=== PATIENT | female | born 1975 | race Caucasian/White ===

== ENCOUNTER 2023-01-08 12:05 | Inpatient (IN) | payer MEDICARE, MEDICAID, SELFPAY ==
[2023-01-08 12:15] VITALS: BMI 41.5
[2023-01-08 12:43] LABS: Basophils # 0.1 10^3/uL (0.0-0.1); Basophils % 0.5 %; Eosinophils # 0.2 10^3/uL (0.0-0.8); Eosinophils % 1.8 %; Hematocrit 43.3 % (37.0-47.0); Lymphocytes # 2.9 10^3/uL (0.8-4.8); Lymphocytes % 27.1 %; Mean Corpuscular HGB Conc 32.3 g/dL (30.0-36.0); Mean Corpuscular Hemoglobin 28.6 pg (28.0-34.0); Mean Corpuscular Volume 88.4 fl (81-99); Mean Platelet Volume 9.4 fL (7.4-10.4); Monocytes # 0.8 10^3/uL (0.2-0.9); Monocytes % 7.2 %; Neutrophils # 6.81 10^3/uL (1.8-7.7); Neutrophils % 62.9 %; Nucleated Red Blood Cells % 0 %; Platelet Count 354 10^3/cmm (130-400); Red Cell Distribution Width 12.9 % (12.1-15.1); White Blood Count 10.8 10^3/uL (4.0-10.0)
[2023-01-08 12:59] LABS: Alanine Aminotransferase 17 U/L (0-33); Albumin Level 3.9 g/dL (3.5-5.2); Alkaline Phosphatase 119 U/L (35-105); Anion Gap 13.6 (5-19); Aspartate Amino Transferase 19 U/L (0-32); Blood Urea Nitrogen 8 mg/dL (6-20); Calcium 9.4 mg/dL (8.5-10.5); Carbon Dioxide 28 mmol/L (22-29); Chloride 97 mmol/L (98-107); Globulin 3.5 g/dL (1.3-4.6); Glomerular Filtration Rate 76.2 mL/min (90-130); Glucose 87 mg/dL (65-115); Osmolality Calculated 278 mOsm/kg (285-295); Potassium 3.6 mmol/L (3.5-5.1); Sodium 135 mmol/L (136-145); Total Bilirubin 0.3 mg/dL (0.15-1.2); Total Protein 7.4 g/dL (6.6-8.7)
[2023-01-08 13:00] LABS: Acetaminophen < 5.0 ug/mL (10-30); Alcohol Level < 10 mg/dL (0-10); Salicylate < 0.3 mg/dL (3-10)
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
--- NOTE | 2023-01-08 13:28 | ECG_ITS ---
[facility] Test Date: 2023-01-08 Pat Name: Samantha Weber Department: Room: Gender: Female Disease Intervention Specialist: : [id number] Requested By: Idalmis Madison Order Number: [id number] Vences MD: Paula Almodovar M.D. Measurements Intervals [place] Rate: 79 P: 66 MA: 155 QRS: 70 QRSD: 110 T: 49 QT: 390 QTc: 449 Interpretive Statements SINUS RHYTHM WITH SINUS ARRHYTHMIA No previous ECG available for comparison Electronically Signed On 01-08-2023 17:18:43 CDT by Paula Almodovar M.D. [id number]
[2023-01-08 13:54] LABS: Amphetamines Screen Urine Negative (Negative); Barbiturates Screen Urine Negative (Negative); Benzodiazepines Screen Urine Negative (Negative); Cocaine Screen Urine Negative (Negative); Opiate Screen Urine Negative (Negative); PCP Screen Urine Negative (Negative); THC Screen Urine Negative (Negative)
[2023-01-08 14:15] LABS: Influenza A by IFA negative (Negative); Influenza B by IFA negative (Negative)
[2023-01-08 14:17] LABS: SARS Covid-2 Antigen negative (Negative)
[2023-01-08 14:19] LABS: Thyroid Stimulating Hormone 2.85 uIU/mL (0.27-4.20)
[2023-01-08 14:52] LABS: Urine Appearance Clear (CLEAR); Urine Color Yellow (Yellow); pH Urine 9 (5-7)
[2023-01-08 14:53] LABS: Add Urine Culture? No; Add Urine Microscopic? YES; Bilirubin Urine Neg (Negative); Blood Urine 3+ (Negative); Glucose Urine UA Norm (Normal); Ketones Urine Negative (Negative); Leukocyte Esterase Urine Negative (Negative); Nitrate Urine Negative (Negative); Protein Urine Neg (Negative); Squamous Epithelial Cell Urine 0-4 /hpf (0-5); Sulfosalicylic Acid Urine Negative (Negative); Urobilinogen Urine Norm (Negative); WBC Urine 0-4 /hpf (0-5)
[2023-01-08] MEDS: LORazepam 2 mg/mL INJ 1 mL IM (15:54)
[2023-01-08 16:00] VITALS: O2SAT 98
[2023-01-08 16:06] VITALS: BP 115/71; PULSE 82; RESP 16; O2SAT 98
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
--- NOTE | 2023-01-08 20:15 | PC.NURSE ---
Pt refused vital signs. Pt stated Am I getting out of here?
--- NOTE | 2023-01-08 21:37 | PC.NURSE ---
Pt came out of her room screaming that it was too hot and she couldn't breathe. Pt is also c/o not being able to keep her door shut. Rules regarding the unit explained to pt. Ice water and cool washcloths provided. Pt returned to room. Pt not in any respiratory distress. Now is calm, will con't to monitor.
--- NOTE | 2023-01-09 02:35 | PC.NURSE ---
Pt up at nurses station again belligerent regarding room temperature. Pt states I'm uncomfortable, and I don't understand why I'm in this place . Discussed w/pt that she will speak to the physician when he arrives this morning. Pt asked can I masturbate in my room what are you going to watch me masturbate I can't just lie here, I need my tablet . Rules of the unit explained to the pt, however she remains belligerent. Pt also c/o back pain, however refused PRN medication. Offered another pillow to which pt accepted. Pt also given another cup of ice per her request, then she dumped it all over her body. One on one care and redirection, minimally effective. Pt has returned to her room for the time being.
--- NOTE | 2023-01-09 05:23 | PC.NURSE ---
called pharmacy regarding pt's medications strattera and triam-hctz combo. The only dose of strattera carried by the facility is 40mg and the pts ordered dose from SNF is 10mg, and the only part of diazide available is the HCTZ. Will refer to physician for review.
[2023-01-09] MEDS: calcium carb-vit d 600mg/400unit 1 Tablet 1 EACH PO (06:23)
[2023-01-09] MEDS: allopurinol 100 mg Tablet 300 MG PO (06:23)
[2023-01-09] MEDS: fluoxetine 10 mg Capsule PO (06:24)
[2023-01-09] MEDS: folic acid 1 mg Tablet 2 MG PO (06:24)
[2023-01-09] MEDS: buPROPion XL (24 HR) 300 mg Tablet PO (06:24)
--- NOTE | 2023-01-09 06:40 | PC.NURSE ---
Pt refused vital signs. Pt stated I don't want to be touched!
[2023-01-09] MEDS: diphenhydrAMINE 50 mg/mL SDV 1mL IM (07:05)
[2023-01-09] MEDS: LORazepam 2 mg/mL INJ 1 mL IM (07:05)
--- NOTE | 2023-01-09 07:05 | PC.NURSE ---
Administered pts am meds, pt remains agitated and aggressive with staff. Discussed medications w/pt, and she finally took medications. Pt then came up to the desk and attempted to make a phone call before 7. It was explained that the phones get turned on at seven, pt became aggressive and slamming the phone and then began pulling and hitting at the glass surrounding the nurses station. Security notified and household appliance repairer. Called physician for medications b/c pt states allergic to haldol. Geodon 20mg x 1 dose now. Medication pulled, however pt refused injection giving a multitude of reasons not to take medication and stated she wanted ativan instead. supervisor dry paste at side, Benadryl and ativan administered per orders. Pt urinated in hallway, stating she had a weak bladder and she did it because security wouldn't let her go to the bathroom. [employer] arrived at this time, and pt states that those nurse, retail shift leader are bitches . Injections administered by Alexus QUINTANA. Pt remains severely agitated, however has returned to her room at this time. Did state I just want to go back home, I'm treated better there . Pt now in room at this time, wall and floor tiler notified.
[2023-01-09] MEDS: pantoprazole DR 40 mg Tablet PO (09:28)
[2023-01-09] MEDS: gabapentin 400 mg Capsule PO ×2 (09:28→17:23)
--- NOTE | 2023-01-09 10:30 | W.PM.NPUH&PS ---
Providers/Chief Complaint Admitting Physician: Berlin Neville MD Chief Complaint: SI, HI HPI NPU History of Present Illness Samantha Weber is a 47 year old female who had been residing at the [facility] in [facility] who presented here with staff members who had been concerned about the patient's aggression and manic behaviors. . The patient was admitted to the neuropsychiatric unit for further evaluation and treatment. According to staff, patient had made several statements stating that she was going to kill herself. Patient reports that she has been under guardianship since the age of [age] years old. She was unwilling and unable to provide information regarding her diagnosis. She had stated that she has had problems with her mood and auditory hallucinations and states that she has been taking the Abilify intramuscularly on a monthly basis. However, she had reported that 2 weeks ago her psychiatrist had taken her off of Geodon and had placed her on Latuda. Patient had stated that she had refused to take Latuda and reports that it had caused her problems over there. Staff also had acknowledged her refusal to take her medications. She reports significant feelings of depression in the past but states that she has not been depressed recently. She had minimized any history of jodee although she had reported having problems with hearing voices in the past. She reports a past history of ADHD with difficulties with concentration and attention and states that the Strattera she had been prescribed was giving her headaches. She had also an indicated a history of significant binge eating in her home environment and states that she feels that the binge eating is out of control. She had requested Vyvanse to help with managing her chronic binge eating. She had reported no significant history of drug or alcohol use. She had reported that she had wanted her medications crushed here to show staff that she was taking the medications. The patient denies any homicidal or suicidal ideation. Inpatient psychiatric history: The patient alludes to having been hospitalized numerous times in the past but reports no recent psychiatric hospitalizations. Outpatient psychiatric history: Patient reports that she is followed by Dr. Delcid who she sees through virtual visits while at the assisted facility. Patient reports that she had been receiving mental health services on an outpatient basis since adolescence. She had reported a past history of bulimia, bipolar disorder and schizophrenia. She has been in residential living and nursing facilities for mental health related issues for several years. Current medications: Folic acid, Prozac 10 mg, Wellbutrin 300 mg daily, allopurinol 300 mg, Strattera 10 mg, gabapentin 400 mg 3 times a day, pantoprazole 40 mg daily, MiraLAX 17 g daily, triamterene hydrochlorothiazide 1 capsule daily, Allergies: Per guardian Keflex, Depakote, trazodone Surgeries: None reported Medical history: History of hypertension, history of gout? Drug and alcohol history: None reported Social history: Patient was born outside of [place]. She states that she lives with her biological family. She had stated having problems with learning as a child. She had reported living in a variety of homes during her childhood and adolescence. She reported no legal problems. She states that she had unmanageable behavior issues and required full oil well logging engineer guardianship at the age of 17. She reports not having graduated from high school. She states that she has not worked in several years and is currently on disability. She is currently residing in a assisted facility in [facility]. She reports having few friends. She had not endorsed any history of sexual physical or emotional abuse. ? Meds NPU Home Medications Medication Instructions Recorded Confirmed Last Taken Type acetaminophen 500 mg tablet 500 mg PO Q4H PRN Fever 01/08/23 01/08/23 Unknown History allopurinol 300 mg tablet 300 mg PO QAM 01/08/23 01/08/23 Unknown History aluminum-mag hydroxide-simethicone 30 ml PO Q6H PRN Stomach Upset 01/08/23 01/08/23 Unknown History 200 mg-200 mg-20 mg/5 mL oral susp aripiprazole 400 mg suspension, 400 mg IM Q30D 01/08/23 01/08/23 Unknown History extended rel.intramuscular syringe ([place]) atomoxetine 10 mg capsule 10 mg PO QAM 01/08/23 01/08/23 Unknown History (Strattera) oyhtjghdmk-beqghrg-crnbvyplmpndc 1 kimber mucous membrane Q4H PRN Cough 01/08/23 01/08/23 Unknown History 10 mg-2 mg lozenges bupropion HCl 300 mg 24 hr tablet, 300 mg PO QAM 01/08/23 01/08/23 Unknown History extended release (Wellbutrin XL) calcium carbonate 600 mg-vitamin 2 tab PO QAM 01/08/23 01/08/23 Unknown History D3 5 mcg (200 unit) tablet fluoxetine 10 mg capsule 10 mg PO QAM 01/08/23 01/08/23 Unknown History folic acid 1 mg tablet 2 mg PO QAM 01/08/23 01/08/23 Unknown History gabapentin 400 mg capsule 400 mg PO TID 01/08/23 01/08/23 Unknown History hydroxyzine pamoate 50 mg capsule 50 mg PO Q6H PRN Anxiety 01/08/23 01/08/23 Unknown History (Vistaril) ibuprofen 800 mg tablet 800 mg PO Q4H PRN Pain 01/08/23 01/08/23 Unknown History loperamide 2 mg capsule See Rx Instructions .Route .COMPLEX 01/08/23 01/08/23 Unknown History lurasidone 60 mg tablet (Latuda) 60 mg PO QPM 01/08/23 01/08/23 Unknown History magnesium hydroxide 400 mg/5 mL 30 ml PO Q12H PRN Constipation 01/08/23 01/08/23 Unknown History oral suspension (Milk of Magnesia) melatonin 5 mg tablet 5 mg PO BEDTIME PRN Insomnia 01/08/23 01/08/23 Unknown History ondansetron 4 mg disintegrating 4 mg PO Q8H PRN Nausea 01/08/23 01/08/23 Unknown History tablet pantoprazole 40 mg tablet,delayed 40 mg PO DAILY 01/08/23 01/08/23 Unknown History release (Protonix) polyethylene glycol 3350 17 gram 17 g PO DAILY 01/08/23 01/08/23 Unknown History oral powder packet (Miralax) simethicone 80 mg chewable tablet 80 mg PO Q6H PRN bloating 01/08/23 01/08/23 Unknown History triamterene 37.5 1 cap PO QAM 01/08/23 01/08/23 Unknown History mg-hydrochlorothiazide 25 mg capsule Allergies Allergy/AdvReac Type Severity Reaction Status Date / Time cephalexin [From Keflex] Allergy Unknown Verified 01/08/23 13:38 divalproex sodium Allergy Unknown Verified 01/08/23 13:38 [From Depakote] trazodone Allergy Unknown Verified 01/08/23 13:38 Mental Status Exam MSE Comments: Casually dressed obese white female with poor hygiene and normal gait. There is no evidence of any abnormal involuntary motor movements tics or tremors appreciated. Her speech was productive with normal rate and volume. She had initially been less forthcoming and was generally a poor historian. Her mood was described as okay. Her affect was intense and labile. There was no clear evidence of delusional thinking. She did not appear to be responding to internal stimuli. She showed evidence of poor frustration tolerance. Her thought process appeared at times scattered and not nonlinear. She denied any homicidal or suicidal ideation. She was alert and oriented to person and place but would not answer current date month or year. Her impulse control appeared impaired. Her insight and judgment were poor. Vitals/I&O/Wt Last Vital Signs Pulse 82 01/08/23 16:06 Resp 16 01/08/23 16:06 BP 115/71 01/08/23 16:06 Pulse Ox 98 01/08/23 16:06 O2 Del Method Room Air 01/08/23 18:16 Weight last 48 hrs Weight 113.398 kg Data NPU 01/08/23 12:35 01/08/23 12:35 A&P Assessment and plan (1) Schizophrenia: (2) Binge eating disorder: (3) Schizoaffective disorder: (4) Aggressive behavior: (5) Suicidal ideation: (6) Homicidal ideation: Plan 47-year-old white female living in a assisted facility with significant chronic mental illness admitted with increased agitation aggression and refusal to take her medications with significant mental health issues reported. 1.?Encourage individual, group and milieu therapy. 2.?Recommend sober living treatment at the highest level of care to which the patient is willing to commit. 3.??? Continue q-15 minute checks for safety.? 4. Consider Vyvanse for binge eating disorder, aggreable to trial of latuda (patient refusing in the SNF , tegretol as well. Spoke with guardian. Involuntary Hold Information 96 Hour Hold: 96 Hour Involuntary Admission: No Attestations NPU Medical Necessity Statement*: Inpatient hospitalization is medically necessary and be clinically appropriate intervention at this time.? We will monitor/initiate medications and make changes as indicated.? She will be in the hospital for over 2 midnights.? Her likely length of stay 7-10 days. Coding Level of Care Code Acute Code for [facility] Fwd Diagnoses Schizophrenia F20.9 Binge eating disorder F50.81 Schizoaffective disorder F25.9 Aggressive behavior R46.89 Suicidal ideation R45.851 Homicidal ideation R45.850
[2023-01-09 14:00] VITALS: BP 116/78; PULSE 98; RESP 18; TEMP 36.5; O2SAT 96
--- NOTE | 2023-01-09 14:55 | PC.OT ---
OT EVALUATION ATTEMPTED IN A.M. BUT NURSING REQUEST HOLD DUE TO PATIENT AGITATION. AT P.M. ATTEMPT PATIENT IS SLEEPING SOUNDLY
[2023-01-09] MEDS: lurasidone 20 mg Tablet 40 MG PO (17:26)
[2023-01-09] MEDS: carBAMazepine 200 mg Tablet PO (17:28)
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
[2023-01-09 21:15] VITALS: BP 97/60; PULSE 91; RESP 16; TEMP 36.8; O2SAT 93
--- NOTE | 2023-01-09 22:12 | PC.NURSE ---
Addendum entered and electronically signed by Lena Chase RN 01/10/23 04:12: DESPITE MULTIPLE ATTEMPTS PT REFUSED GABAPENTIN THAT WAS SCHEDULED FOR 2100. NO NEW ORDERS RECEIVED. Original Note: IN BED RESTING AROUSES TO VOICE. DENIES SI/HI AND AVH AT THIS TIME. DENIES PAIN. STATES SHE WOULD PREFER THAT STAFF BRING HER ALL HER MEDICATION AND HER DRINKS/LUNCH. PT WAS EDUCATED THAT WE DO NOT BRING MEDICATIONS TO THE BED THAT SHE WILL HAVE TO COME UP TO THE NURSES STATION. PT GOT UPSET AND ROLLED OVER. PT STATES SHE IS NOT GOING TO TAKE HER NIGHT TIME MEDICATIONS AND WE CAN'T MAKE HER. ATTEMPTED TO REDIRECT AND EDUCATE PT WITHOUT ANY EFFECT.
[2023-01-10] MEDS: allopurinol 100 mg Tablet 300 MG PO (05:36)
[2023-01-10] MEDS: buPROPion XL (24 HR) 300 mg Tablet PO (05:37)
[2023-01-10] MEDS: folic acid 1 mg Tablet 2 MG PO (05:37)
[2023-01-10] MEDS: calcium carb-vit d 600mg/400unit 1 Tablet 1 EACH PO (05:37)
--- NOTE | 2023-01-10 05:37 | PC.NURSE ---
Patient approached the nurses station asking for someone to give her a shower. Patient was informed that she would have to shower herself. Patient stated that the nursing [facility] gives her a shower. Staff informed patient that she would need to bath herself as this is an independent unit and patient became agitated. Patient then stated that she needed a shower chair and a shower hose to be able to shower by herself. Staff informed patient that we would see if Day shift would be able to get her a shower chair but that we could not get her a shower hose due to safety concerns. Patient then stated that she has never been in a facility that did not offer hygiene products. Patient was informed that we do offer those and all she would need to do is come to the nurses station and ask for it. Also informed patient that when she was done using the hygiene products that she would need to return it to the nurses station. Patient then stated Why the fuck would i return it. Staff explained to patient that no one has their hygiene box in their rooms and that it is policy. Patient stated This shit is stupid and i am not asking for shit Patient then proceeded to state Once she is discharge she will just lodge a complaint stating that we do not offer any hygiene items for patients. Staff again explain to patient that she did have a hygiene box however it is to remain at the nurses station. Patient again became agitated and proceeded to cuss and demand a shower. We again let patient know that she would be able to take a shower but if she was needing a chair that she would have to wait until day shift. Patient then stated that she was going back to her room and will report staff for refusing to let her take a shower. Patient slammed her door and staff reminded patient that she needed to keep her door cracked. Patient stated that she was naked and that she could not sleep with the door open due to the light. Patient was informed that she still had to leave her door cracked. Patient then returned to nurses station stating that it was too hot and she could not sleep with the heat. Staff informed patient that we did turn the AC down and were not able to lower it anymore. Patient then proceeded to ask for a cup of ice and took off her scrub top. Patient was told to put her shirt back on and patient stated I am too fucking hot and i am going to my room right now. You can fuck off.
--- NOTE | 2023-01-10 05:50 | PC.NURSE ---
PT UP TO NURSES STATION THIS AM, VERY DEMANDING, SPEAKING ERRATICALLY. WAS MAD ABOUT MEDICATIONS AND STATES WE DON'T KNOW HOW TO GIVE MY MEDS LIKE THEY DO IN THE HALF-WAY. PT WAS EDUCATED THAT THE HOSPITAL HAS DIFFERENT TIMES FOR MEDICATIONS AND ITS NOT ALL LUMPED TOGETHER. PT STATED WELL THATS JUST FUCKING STUPID. PT THEN STATES YOU NEED TO GIVE ME A SHOWER TOO. I CAN'T SHOWER AND WASH MYSELF. PT WAS ASKED WHY SHE COULD NOT WASH HERSELF, PT STATED, IT'S NONE OF YOUR BUSINESS, YOU JUST NEED TO DO IT. PT WAS EDUCATED THAT WE DO NOT SHOWER PATIENTS, BUT STAFF COULD ASSIST HER IF NEEDED. PT STATED YOU BETTER GET ME A SHOWER CHAIR AND A HOSE SO YOU CAN WASH THE SOAP OFF ME. EDUCATION PROVIDED THAT HOSES ARE NOT ALLOWED ON THE UNIT AND WE WOULD NEED TO GET ORDERS TO GET A CHAIR. PT STILL NOT HAPPY AND DEMANDED THAT STAFF GO IN HER SHOWER AND WASH HER. PT THEN WENT ON A TANGENT ABOUT THE DR. NOT PUTTING HER ON VYVANSE. PT STATES IF I DON'T GET MY ADD MEDICATIONS, I WILL THROW SHIT AND THEN GET AGGRESSIVE. PT GOES FROM TOPIC TO TOPIC HAVING FLIGHT OF IDEAS AND THEN FIXATING ON ONE TOPIC TO THE POINT SHE GETS UPSET AND STORMS OFF TO HER ROOM AND SLAMS THE DOOR. PT REDIRECTED MULTIPLE TIMES BY THIS RN AND OTHER STAFF WITH LITTLE RESOLVE. PT CAME BACK TO THE NURSES STATION YELLING IT'S HOT IS SO HOT, I NEED ICE, I NEED MY CLOTHES. I CAN'T WEAR THIS COLOR I DON'T LIKE IT AND IT FEELS BAD ON MY SKIN. PT WAS EDUCATED THAT SHE IS ON [employer] AND ALL PATIENTS WEAR GREEN SCRUBS. PT WAS GIVEN A CUP OF ICE, PT THEN PROCEEDED TO TAKE OFF HER TOP AND WAS NAKED AT THE NURSES STATION. PT WAS DIRECTED TO PUT HER SHIRT BACK ON, PT STATED YOU CAN FUCK OFF I'M GOING BACK TO MY ROOM ITS TO HOT. PT WENT TO ROOM STRIPPED OFF CLOTHING AND SAID I'M NAKED AND YOU ALL CAN JUST LOOK AT ME. THIS RN REASSURED PT THAT THE DOOR WAS CRACKED AND NO ONE COULD SEE HER. PT STATES I DON'T FUCKING CARE YOU CAN LOOK AT MY NAKED BODY. PT WAS INFORMED THAT THE AIR WAS TURNED DOWN TO 70 DEGREES AND WE CAN NOT TURN IT DOWN ANYMORE. PT CONTINUED TO CUSS AT THIS RN. AT 604 PT IS IN ROOM LAYING IN BED.
[2023-01-10 06:00] VITALS: RESP 18
--- NOTE | 2023-01-10 09:38 | PC.NURSE ---
Patient reports anxiety and fidgiting. Patient denies SI, HI, AVH. Patient states that she is going to try to be good today.
--- NOTE | 2023-01-10 09:39 | PC.OT ---
OT EVALUATION ATTEMPTED THIS A.M. PATIENT UNAVAILABLE DUE TO SHOWERING WITH NURSING STAFF. WILL ATTEMPT AGAIN LATER TODAY
[2023-01-10] MEDS: gabapentin 400 mg Capsule PO ×3 (09:50→21:56)
--- NOTE | 2023-01-10 09:58 | PC.NURSE ---
Pt refused to take medications this shift. 200mg Tegretol, Protonix 40mg. Pt became aggitated and upset, pt stated that she doesn't want to take these meds because they do not work for her.
[2023-01-10 14:00] VITALS: BP 134/88; PULSE 106; RESP 17; O2SAT 95
--- NOTE | 2023-01-10 18:08 | P.NPUPN_ITS ---
Subjective NPU Subjective: Patient presented today reporting that she is fine with returning to her facility. She spent a majority of the time lobbying for Vyvanse or Adderall at some medication for my mrl-zs-mcictqy ADHD. I cannot organize or make my bed or anything because of my ADHD. We discussed returning to her facility in the morning but she was seeming more focused on whether or not we will be able to make sure she got prescription for some stimulant for ADHD before she returns. She reports that she was placed on Strattera by a recent facility and that reportedly does not work. Mental Status Exam MSE Comments: This is an obese versus morbidly obese white female in hospital scrubs with limited grooming but adequate eye contact. No abnormal movements except for mild psychomotor agitation. Mostly cooperative with exam in mild distress. Speech was increased rate and volume and seemingly flustered. Mood described as fine but I need medication for ADHD, affect flustered. Thought process linear. Thought content: Patient denies suicidal or homicidal ideation, there are no delusions reported or noted, she denied any auditory or visual hallucinations. Attention and concentration were mostly intact and memory appeared reliable but none were formally tested. Alert and oriented times person and place. Insight and judgment are limited and impulse control is limited. Vitals/I&O/Wt Last Vital Signs Temp 98.3 F 01/09/23 21:15 Pulse 95 01/10/23 20:52 Resp 18 01/10/23 20:52 BP 92/42 01/10/23 20:52 Pulse Ox 94 01/10/23 20:52 O2 Del Method Room Air 01/10/23 20:52 Data NPU 01/08/23 12:35 01/08/23 12:35 A&P Assessment and plan (1) Schizophrenia: (2) Binge eating disorder: (3) Schizoaffective disorder: (4) Aggressive behavior: (5) Suicidal ideation: (6) Homicidal ideation: Plan 47-year-old white female living in a [place] [facility] facility with significant chronic mental illness admitted with increased agitation aggression and refusal to take her medications with significant mental health issues reported. 1.?Encourage individual, group and milieu therapy. 2.?Recommend sober living treatment at the highest level of care to which the patient is willing to commit. 3.??? Continue q-15 minute checks for safety.? 4. Consider Vyvanse for binge eating disorder, aggreable to trial of latuda (patient refusing in the SNF , tegretol as well. Spoke with guardian. 5. Spoke with SNF about inappropriateness of send patient to the hospital in hopes of hospital placement in a new SNF. Plan for discharge in the morning. Involuntary Hold Information 96 Hour Hold: 96 Hour Involuntary Admission: No Attestations NPU Medical Necessity Statement*: Inpatient hospitalization is medically necessary and be clinically appropriate intervention at this time.? We will monitor/initiate medications and make changes as indicated.? Her likely length of stay 1-2 days. Coding Level of Care Code Acute Code for g Fwd Diagnoses Schizophrenia F20.9 Binge eating disorder F50.81 Schizoaffective disorder F25.9 Aggressive behavior R46.89 Suicidal ideation R45.851 Homicidal ideation R45.850
[2023-01-10] MEDS: lurasidone 20 mg Tablet 40 MG PO (18:20)
--- NOTE | 2023-01-10 18:22 | PC.NURSE ---
Patient refused her tegretol because she doesn't like how it makes her feel. Patient states that she takes it for nerve pain. Patient is concerned that by not taking the medication, she will not be released tomorrow. Patient ansy and talking loudly as she voices her concerns. This nurse stressed that she has the right to refuse a medication and that the doctor will be informed. Patient calmed down a few minutes later.
[2023-01-10 20:52] VITALS: BP 92/42; PULSE 95; RESP 18; O2SAT 94
--- NOTE | 2023-01-10 21:49 | PC.NURSE ---
PT BECAME VERY AGITATED WHEN STAFF WERE IN HER ROOM DOING VITALS. PT RAN DOWN THE HONG YELLING, SAW THIS RN AND STARTED YELLING IN FACE. YELLS, THEY KEEP SAYING I AM NOT GOING HOME AND I AM, AND THEY SAID IF I DIDN'T LET THEM TAKE MY BLOOD PRESSURE I HAD TO STAY HERE, PT CONTINUED TO RAMBLE WITH ANIMATED RAPID SPEECH. THIS RN INTERRUPTED HER AND TOLD YES SHE IS GOING HOME TOMORROW. PT THEN CALMED DOWN AND WALKED TO ROOM WHILE CALLING THE STAFF FAT BITCHES THAT DON'T KNOW NOTHING. PT WAS REDIRECTED VERBALLY. PT THEN WENT TO ROOM, LAID DOWN AND WAS NOTED TO BE ASLEEP WITHIN 3 MINUTES. PT DID DENY SI/HI AND AVH WELL PAIN.
--- NOTE | 2023-01-11 06:12 | PC.NURSE ---
AT NURSES STATION YELLING AND SCREAMING GIVE ME MY MED NOW. PT HAD JUST REFUSED MEDICATIONS TELLING THIS RN I'M NOT TAKING THAT SHIT, I DON'T TAKE MY MEDS THIS EARLY I TOLD YOU THAT FUCKING YESTERDAY. PT WAS OBSERVED BEATING ON THE DESK YELLING AND WAKING UP OTHER PATIENTS. PT WAS VERBALLY REDIRECTED WITH LITTLE RESOLVE. PT CONTINUED TO STOMP UP AND DOWN THE HONG YELLNG ABOUT HER MEDICATION. PT DID FINALLY GO INTO HER ROOM AFTER GIVING STAFF MULTIPLE EXCUSES TO WHY SHE ACTS THIS WAY.
[2023-01-11] MEDS: gabapentin 400 mg Capsule PO (08:32)
[2023-01-11] MEDS: buPROPion XL (24 HR) 300 mg Tablet PO (08:35)
[2023-01-11] MEDS: folic acid 1 mg Tablet 2 MG PO (08:35)
[2023-01-11] MEDS: calcium carb-vit d 600mg/400unit 1 Tablet 1 EACH PO (08:36)
--- NOTE | 2023-01-11 08:59 | W.PM.NPUDCS ---
Diagnoses at Discharge Discharge Diagnosis (1) Schizophrenia: Status: Acute (2) Binge eating disorder: Status: Acute (3) Schizoaffective disorder: Status: Acute (4) Aggressive behavior: Status: Acute (5) Suicidal ideation: Status: Acute (6) Homicidal ideation: Status: Acute Reason for Visit Reason for Visit: SI, HI Brief History: Samantha Weber is a 47 year old female who had been residing at the [facility] in [facility] who presented here with staff members who had been concerned about the patient's aggression and manic behaviors. . The patient was admitted to the neuropsychiatric unit for further evaluation and treatment. According to staff, patient had made several statements stating that she was going to kill herself. Patient reports that she has been under guardianship since the age of [age] years old. She was unwilling and unable to provide information regarding her diagnosis. She had stated that she has had problems with her mood and auditory hallucinations and states that she has been taking the Abilify intramuscularly on a monthly basis. However, she had reported that 2 weeks ago her psychiatrist had taken her off of Geodon and had placed her on Latuda. Patient had stated that she had refused to take Latuda and reports that it had caused her problems over there. Staff also had acknowledged her refusal to take her medications. She reports significant feelings of depression in the past but states that she has not been depressed recently. She had minimized any history of jodee although she had reported having problems with hearing voices in the past. She reports a past history of ADHD with difficulties with concentration and attention and states that the Strattera she had been prescribed was giving her headaches. She had also an indicated a history of significant binge eating in her home environment and states that she feels that the binge eating is out of control. She had requested Vyvanse to help with managing her chronic binge eating. She had reported no significant history of drug or alcohol use. She had reported that she had wanted her medications crushed here to show staff that she was taking the medications. The patient denies any homicidal or suicidal ideation. Inpatient psychiatric history: The patient alludes to having been hospitalized numerous times in the past but reports no recent psychiatric hospitalizations. Outpatient psychiatric history: Patient reports that she is followed by Dr. Delcid who she sees through virtual visits [facility] at [facility]. Patient reports that she had been receiving mental health services on an outpatient basis since adolescence. She had reported a past history of bulimia, bipolar disorder and schizophrenia. She has been in residential living and nursing facilities for mental health related issues for several years. Current medications: Folic acid, Prozac 10 mg, Wellbutrin 300 mg daily, allopurinol 300 mg, Strattera 10 mg, gabapentin 400 mg 3 times a day, pantoprazole 40 mg daily, MiraLAX 17 g daily, triamterene hydrochlorothiazide 1 capsule daily, Allergies: Per guardian Keflex, Depakote, trazodone Surgeries: None reported Medical history: History of hypertension, history of gout? Drug and alcohol history: None reported Social history: Patient was born outside of [place]. She states that she lives with her biological family. She had stated having problems with learning as a child. She had reported living in a variety of homes during her childhood and adolescence. She reported no legal problems. She states that she had unmanageable behavior issues and required full silver steward guardianship at the age of 17. She reports not having graduated from high school. She states that she has not worked in several years and is currently on disability. She is currently residing in a retirement facility in [facility]. She reports having few friends. She had not endorsed any history of sexual physical or emotional abuse. Hospital Course Hospital Course Patient slowly acclimated to the individual, group and milieu therapies provided. She presented fairly agitated and focused on ADHD medication. Tegretol and Latuda were started. She worked with the social work team for appropriate follow-up. During hospitalization she had moderate improvement and was able to contract for safety outside of the hospital prior to discharge. During the hospitalization, she had routine laboratory studies which were within normal limits except for a few outliers. Additionally she had general medical evaluation which was also within normal limits and revealed no new acute processes. Discharge Summary At the time of discharge, she denied any lethality or psychosis. Mood and anxiety were well managed and she endorsed a plan to avoid all drugs of abuse, and follow-up with the recommended post hospital services. She was evaluated and deemed to be absent credible lethality and had received the maximum benefit from an inpatient hospitalization, so was discharged Involuntary Hold Information 96 Hour Hold: 96 Hour Involuntary Admission: No Mental Status Exam MSE Comments: This is an obese versus morbidly obese white female in hospital scrubs with limited grooming but adequate eye contact. No abnormal movements except for mild psychomotor agitation. Mostly cooperative with exam in mild distress. Speech was increased rate and volume and seemingly flustered. Mood described as fine but I need medication for ADHD, affect flustered. Thought process linear. Thought content: Patient denies suicidal or homicidal ideation, there are no delusions reported or noted, she denied any auditory or visual hallucinations. Attention and concentration were mostly intact and memory appeared reliable but none were formally tested. Alert and oriented times person and place. Insight and judgment are limited and impulse control is limited. Discharge Data Studies Completed and Pending: Laboratory Results WBC 10.8 10^3/uL (4.0 -10.0) H 01/08/23 12:35 RBC 4.90 10^6/uL (4.1 -5.3) 01/08/23 12:35 Hgb 14.0 g/dL (11.5-1 5.3) 01/08/23 12:35 Hct 43.3 % (37.0-47.0 ) 01/08/23 12:35 MCV 88.4 fl (81-99) 01/08/23 12:35 MCH 28.6 pg (28.0-34. 0) 01/08/23 12:35 MCHC 32.3 g/dL (30.0-3 6.0) 01/08/23 12:35 RDW 12.9 % (12.1-15.1 ) 01/08/23 12:35 Plt Count 354 10^3/cmm (130 -400) 01/08/23 12:35 MPV 9.4 fL (7.4-10.4) 01/08/23 12:35 Neut % (Auto) 62.9 % 01/08/23 12:35 Lymph % (Auto) 27.1 % 01/08/23 12:35 Pope % (Auto) 7.2 % 01/08/23 12:35 Eos % (Auto) 1.8 % 01/08/23 12:35 Baso % (Auto) 0.5 % 01/08/23 12:35 Neut # (Auto) 6.81 10^3/uL (1.8 -7.7) 01/08/23 12:35 Lymph # (Auto) 2.9 10^3/uL (0.8- 4.8) 01/08/23 12:35 Pope # (Auto) 0.8 10^3/uL (0.2- 0.9) 01/08/23 12:35 Eos # (Auto) 0.2 10^3/uL (0.0- 0.8) 01/08/23 12:35 Baso # (Auto) 0.1 10^3/uL (0.0- 0.1) 01/08/23 12:35 Nucleated RBC % (a uto) 0 % 01/08/23 12:35 Nucleated RBCs # 0.0 /100WBC 01/08/23 12:35 Sodium 135 mmol/L (136-1 45) L 01/08/23 12:35 Potassium 3.6 mmol/L (3.5-5 .1) 01/08/23 12:35 Chloride 97 mmol/L (98-107 ) L 01/08/23 12:35 Carbon Dioxide 28 mmol/L (22-29) 01/08/23 12:35 Anion Gap 13.6 (5-19) 01/08/23 12:35 BUN 8 mg/dL (6-20) 01/08/23 12:35 Creatinine 0.8 mg/dL (0.5-0. 9) 01/08/23 12:35 GFR Calculation 76.2 mL/min (90-1 30) L 01/08/23 12:35 Glucose 87 mg/dL (65-115) 01/08/23 12:35 Calculated Osmolal ity 278 mOsm/kg (285- 295) L 01/08/23 12:35 Calcium 9.4 mg/dL (8.5-10 .5) 01/08/23 12:35 Total Bilirubin 0.3 mg/dL (0.15-1 .2) 01/08/23 12:35 AST 19 U/L (0-32) 01/08/23 12:35 ALT 17 U/L (0-33) 01/08/23 12:35 Alkaline Phosphata se 119 U/L (35-105) H 01/08/23 12:35 Total Protein 7.4 g/dL (6.6-8.7 ) 01/08/23 12:35 Albumin 3.9 g/dL (3.5-5.2 ) 01/08/23 12:35 Globulin 3.5 g/dL (1.3-4.6 ) 01/08/23 12:35 TSH 2.85 uIU/mL (0.27 -4.20) 01/08/23 12:35 Urine Color Yellow (Yellow) 01/08/23 13:23 Urine Appearance Clear (CLEAR) 01/08/23 13:23 Urine pH 9 (5-7) H 01/08/23 13:23 Ur Specific Gravit y 1.010 (1.005-1.0 30) 01/08/23 13:23 Urine Protein Neg (Negative) 01/08/23 13:23 Urine Glucose (UA) Norm (Normal) 01/08/23 13:23 Urine Ketones Negative (Negati ve) 01/08/23 13:23 Urine Blood 3+ (Negative) H 01/08/23 13:23 Urine Nitrate Negative (Negati ve) 01/08/23 13:23 Urine Bilirubin Neg (Negative) 01/08/23 13:23 Prot Sulfosalicyli c Acd Negative (Negati ve) 01/08/23 13:23 Urine Urobilinogen Norm mg/dL (Negat denise) 01/08/23 13:23 Ur Leukocyte Katy ase Negative (Negati ve) 01/08/23 13:23 Urine RBC 5-10 /hpf (0-2) H 01/08/23 13:23 Urine WBC 0-4 /hpf (0-5) H 01/08/23 13:23 Ur Squamous Epith Cells 0-4 /hpf (0-5) H 01/08/23 13:23 Amorphous Sediment Not Reportable 01/08/23 13:23 Urine Bacteria None /hpf (NONE) 01/08/23 13:23 Salicylates < 0.3 mg/dL (3-10 ) L 01/08/23 12:35 Urine Opiates Scre en Negative ng/mL (N egative) 01/08/23 13:23 Acetaminophen < 5.0 ug/mL (10-3 0) L 01/08/23 12:35 Ur Barbiturates Sc reen Negative ng/mL (N egative) 01/08/23 13:23 Ur Phencyclidine S crn Negative ng/mL (N egative) 01/08/23 13:23 Ur Amphetamines Sc reen Negative ng/mL (N egative) 01/08/23 13:23 U Benzodiazepines Scrn Negative ng/mL (N egative) 01/08/23 13:23 Urine Cocaine Scre en Negative ng/mL (N egative) 01/08/23 13:23 U Marijuana (THC) Screen Negative ng/mL (N egative) 01/08/23 13:23 Ethyl Alcohol < 10 mg/dL (0-10) 01/08/23 12:35 Influenza Type A A g negative (Negati ve) 01/08/23 13:47 Influenza Type B A g negative (Negati ve) 01/08/23 13:47 SARS-CoV-2 Ag (Rap id) negative (Negati ve) 01/08/23 13:47 Vitals: Last Vital Signs Temp 98.3 F 01/09/23 21:15 Pulse 95 01/10/23 20:52 Resp 18 01/10/23 20:52 BP 92/42 01/10/23 20:52 Pulse Ox 94 01/10/23 20:52 O2 Del Method Room Air 01/10/23 20:52 Discharge Plan Discharge Patient Disposition: Xfer SNF Condition: Stable Prescriptions: New carbamazepine 200 mg Tablet 200 mg PO BID 30 Days Qty: 60 1RF Latuda 20 mg Tablet 40 mg PO QPM 30 Days Qty: 60 1RF Continued loperamide 2 mg Capsule See Rx Instructions .ROUTE .COMPLEX Rx Instructions: 4 mg (2 tabs) po at onset of loose stool, then 2 mg (1 tab) po prn diarrhea Miralax 17 gram Powder In Packet 17 g PO DAILY ibuprofen 800 mg Tablet 800 mg PO Q4H PRN (Reason: Pain) gabapentin 400 mg capsule 400 mg PO TID Vistaril 50 mg Capsule 50 mg PO Q6H PRN (Reason: Anxiety) calcium carbonate-vitamin D3 600 mg-5 mcg (200 unit) Tablet 2 tab PO QAM acetaminophen 500 mg Tablet 500 mg PO Q4H PRN (Reason: Fever) triamterene-hydrochlorothiazid 37.5-25 mg Capsule 1 cap PO QAM Milk of Magnesia 400 mg/5 mL Suspension 30 ml PO Q12H PRN (Reason: Constipation) Protonix 40 mg Tablet,Delayed Release (Dr/Ec) 40 mg PO DAILY fluoxetine 10 mg capsule 10 mg PO QAM folic acid 1 mg Tablet 2 mg PO QAM allopurinol 300 mg tablet 300 mg PO QAM alum-mag hydroxide-simeth 200-200-20 mg/5 mL Suspension 30 ml PO Q6H PRN (Reason: Stomach Upset) ondansetron 4 mg tablet,disintegrating 4 mg PO Q8H PRN (Reason: Nausea) simethicone 80 mg Tablet,Chewable 80 mg PO Q6H PRN (Reason: bloating) jxnuxsoodr-thkflhl-oriqphwkyj 10-2 mg Lozenge 1 kimber MUCOUS MEMBRANE Q4H PRN (Reason: Cough) Strattera 10 mg Capsule 10 mg PO QAM Wellbutrin XL 300 mg Tablet Extended Release 24 Hr 300 mg PO QAM melatonin 5 mg Tablet 5 mg PO BEDTIME PRN (Reason: Insomnia) Abilify Maintena 400 mg suspension,extended rel syring 400 mg IM Q30D Discontinued lurasidone [Latuda] 60 mg Tablet 60 mg PO QPM Rx Instructions: must administer with food (at least 350 calories) Discharge Orders: Discharge Order (Routine); Ordered 01/11/23 Ordered By: Javier Wolf Discharge Diet: Regular Discharge Activity: Resume usual activity Patient Instructions: Schizophrenia (DC), Opioid Safety Discharge Attestations NPU Time Spent in Discharge Care*: less than 30 min Specific Discharge Activities: Specific discharge activities: educating patient, discussing with case management assistant/social workers/dc planners, documenting/other paperwork and evaluating patient/reviewing data Coding Level of Care Code Acute Chg FW DC note Diagnoses Schizophrenia F20.9 Binge eating disorder F50.81 Schizoaffective disorder F25.9 Aggressive behavior R46.89 Suicidal ideation R45.851 Homicidal ideation R45.850
--- NOTE | 2023-01-11 08:59 | DCPLANNER ---
IMM was completed with pt's staffand they were given a copy of rights.
[2023-01-11 09:03] VITALS: BP 92/42; PULSE 95; RESP 18; O2SAT 94
== END 2023-01-11 09:05 | disposition skilled nursing facility (03) | DRG 885 ==
LOC: ER 14:13 → NP 16:35
PROVIDERS: Admitting Provider Psychiatry & Neurology Psychiatry; Emergency Provider Physician Assistant; Visit Provider Psychiatry & Neurology Psychiatry
DX: F20.9 Schizophrenia, unspecified (principal); R45.851 Suicidal ideations; Z68.41 Body mass index [BMI] 40.0-44.9, adult; F50.81 Binge eating disorder; R45.850 Homicidal ideations; Z91.148 Patient's other noncompliance with medication regimen for other reason
CPT/HCPCS: 36415; 80053; 80306; 80307; 81001; 84443; 85025; 87426; 87804; 93005; 96372; 97150; 97165; 99238; 99285; J1200; J2060; J3486